=== PATIENT | male | born 2000 | race African-American/Black ===

== ENCOUNTER 2025-01-31 12:19 | Emergency (ER) | payer SELFPAY ==
[~2025-01-31] VITALS: Ht 182.9 cm; Wt 84.0 kg
[2025-01-31 12:23] VITALS: BP 142/82; PULSE 95; RESP 14; TEMP 36.8; O2SAT 100
[2025-01-31 14:34] LABS: CHLORIDE 104 mEq/L (98-107); POTASSIUM 4.3 mEq/L (3.5-5.1); SODIUM 138 mEq/L (136-145)
[2025-01-31 14:35] LABS: CARBON DIOXIDE 22 mEq/L (21-32)
[2025-01-31 14:36] LABS: CALCIUM 9.6 mg/dL (8.7-10.4)
[2025-01-31 14:40] LABS: BASOPHILS % 0.4 % (0.0-2.0); CREATININE 0.9 mg/dL (0.6-1.3); EOSINOPHILS % 0.9 % (0.0-5.0); HEMATOCRIT. 44.5 % (42.0-52.0); LYMPHOCYTES % 18.3 % (20.0-50.0); MEAN CORPUSCULAR HEMOGLOBIN 31.1 pg (28.0-32.0); MEAN CORPUSCULAR HGB CONC 33.7 g/dL (31.0-37.0); MONOCYTES % 7.4 % (2.0-8.0); PLATELET 185 x1000/uL (130-400); RED BLOOD CELL COUNT 4.83 mill/uL (4.7-6.1); RED CELL DISTRIBUTION WIDTH 13.2 % (11.6-14.6); WHITE BLOOD COUNT 5.9 x1000/uL (4.5-11.0)
[2025-01-31 14:41] LABS: GLUCOSE 119 mg/dL (70-105); UREA NITROGEN BLOOD 19 mg/dL (9-23)
== END 2025-01-31 15:41 | disposition home or self-care (01) ==
LOC: ER 12:19
DX: R55 Syncope and collapse (principal); I10 Essential (primary) hypertension
CPT/HCPCS: 36415; 72100; 72170; 80048; 82962; 85025; 93005; 99285